=== PATIENT | female | born 1995 | race Caucasian/White ===

== ENCOUNTER 2025-05-21 12:32 | Emergency (ER) | payer OTHER ==
[2025-05-21 12:43] VITALS: BP 125/89; PULSE 61; RESP 20; TEMP 98.2; BMI 27.8
[2025-05-21 14:41] LABS: URINE APPEARANCE CLEAR; URINE BILIRUBIN NEGATIVE (NEGATIVE); URINE COLOR YELLOW; URINE GLUCOSE (UA) NEGATIVE (NEGATIVE); URINE KETONE NEGATIVE (NEGATIVE); URINE LEUK ESTERASE NEGATIVE (NEGATIVE); URINE NITRITE NEGATIVE (NEGATIVE); URINE PROTEIN NEGATIVE (NEGATIVE); URINE UROBILINOGEN 0.2 mg/dL (0.2-1.0)
[2025-05-21 14:50] LABS: HCG,QUALITATIVE URINE Negative
[2025-05-21] MEDS ORDERED: ACETAMINOPHEN INJECTION 100 ML ONE (15:01)
[2025-05-21] MEDS: ACETAMINOPHEN 500 MG TABLET (FP) PO ONE (15:04)
[2025-05-21 15:05] LABS: ABSOLUTE IMMATURE GRANULOCYTES 0.01 x10^3/uL (0.0-0.031); BASOPHILS # 0.04 x10^3/uL (0.01-0.08); EOSINOPHIL % 0.3 % (0.7-5.8); EOSINOPHILS # 0.02 x10^3/uL (0.04-0.36); MCHC 33.6 g/dl (32.2-35.5); MEAN CELL VOLUME 87.4 fl (79.4-94.8); MEAN PLT VOLUME 10.2 fl (9.4-12.3); MONOCYTE # 0.37 x10^3/uL (0.24-0.86); MONOCYTE % 6.1 % (4.7-12.5); RDW 12.0 % (12.1-16.5)
[2025-05-21 15:29] LABS: GLUCOSE,RANDOM 89.0 mg/dL (74-106)
[2025-05-21 15:30] LABS: TOT PROT 7.3 g/dl (6.4-8.2)
[2025-05-21 15:31] LABS: CO2 24.0 mmol/L (21-32)
[2025-05-21 15:32] LABS: ALK PHOS 62.0 U/L (40-150)
[2025-05-21 15:35] LABS: CREATININE 0.66 mg/dL (0.55-1.3); SGOT/AST 17.0 U/L (5-34); SGPT/ALT 20.0 U/L (0-55)
[2025-05-21 15:55] LABS: HCV DIAGNOSTIC IN-HOUSE W/RFLX NON-REACTIVE (NONREACTIVE)
[2025-05-21 15:56] LABS: HIV INTERPRETATION NEGATIVE (NEGATIVE)
== END 2025-05-21 17:19 | disposition home or self-care (01) ==
LOC: JER 12:32
DX: K52.9 Noninfective gastroenteritis and colitis, unspecified (principal); N89.8 Other specified noninflammatory disorders of vagina; R00.0 Tachycardia, unspecified; R00.1 Bradycardia, unspecified; R10.A1 Flank pain, right side
CPT/HCPCS: 36415; 74176-TC; 76830-TC; 80053; 81003; 83690; 84703; 85025; 86780; 86803; 87070; 87086; 87109; 87205; 87389; 87491; 87591; 87661; 99285-25